=== PATIENT | female | born 1995 | race Hispanic/Latino ===

== ENCOUNTER 2025-08-12 15:36 | Emergency (ER) | payer BC, SELFPAY ==
[2025-08-12] VITALS (8 sets, daily range): BP systolic 101–115; BP diastolic 69–80; PULSE 78–89; RESP 12–24; TEMP 36.8; O2SAT 93–100; BMI 21.2
--- NOTE | 2025-08-12 16:18 | DI.RAD.S_ITS ---
PROCEDURE: XR CHEST 1V INDICATIONS: Chest Pain TECHNIQUE: One view of the chest was acquired. COMPARISON: None. FINDINGS: Surgical changes and devices: None. Lungs and pleura: Lungs are clear. No pleural effusions or pneumothorax. Mediastinum: Mediastinal contours appear normal. Heart size is normal. Bones and chest wall: No suspicious bony lesions. Overlying soft tissues appear unremarkable. IMPRESSION: No acute cardiopulmonary abnormality is seen. Dictated by: Bj Sierra M.D. on 08/12/2025 at 16:07 Approved by: Bj Sierra M.D. on 08/12/2025 at 16:07
[2025-08-12 16:34] LABS: Add Manual Diff / Slide Review NO; Hematocrit 35.4 % (36-46); Hemoglobin 12.1 g/dL (12.0-16.0); Lymphocytes Absolute Auto 1200 /uL (1100-4500); Mean Corpuscular HGB Conc 34.1 % (30-36); Mean Corpuscular Hemoglobin 32.5 PG (26-34); Mean Corpuscular Volume 95.3 fL (80-100); Platelet Count 307 X10^3/uL (150-400)
[2025-08-12] MEDS: LACTATED RINGERS 1,000 ML 1000 ML IV (16:38)
[2025-08-12 16:41] LABS: INR 1.0 (0.9-1.3); Prothrombin Time 11.7 SECONDS (9.4-12.5)
[2025-08-12 16:44] LABS: PTT Partial Thromboplastin Tim 27 SECONDS (25.1-36.5)
[2025-08-12 16:45] LABS: Alanine Aminotransferase 47 IU/L (<35); Albumin 4.4 g/dL (3.5-5.0); Albumin Globulin Ratio 1.5 (1.0-2.8); Alkaline Phosphatase 66 U/L (38-126); Blood Urea Nitrogen 10 mg/dL (7-17); Calcium 8.9 mg/dL (8.4-10.2); Carbon Dioxide 24 mmol/L (22-32); Chloride 101 mmol/L (98-107); Creatine Kinase 115 U/L (30-135); Estimated Glomerular Filt Rate > 60 mL/min (>60); Globulin 3.0 g/dL (1.7-4.1); Glucose 79 mg/dL (70-99); HEMOLYSIS < 15 (0-50); Lipase 181 U/L (23-300); Magnesium 2.0 mg/dL (1.6-2.3); Potassium 4.1 mmol/L (3.4-5.1); Sodium 132 mmol/L (137-145); Total Protein 7.4 g/dL (6.3-8.2)
[2025-08-12 16:56] LABS: NT-proBNP (BNP-Adult 18+) < 20 pg/mL (<125); Troponin I < 0.012 ng/mL (0.01-0.034)
--- NOTE | 2025-08-12 17:50 | EKG_ITS ---
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
--- NOTE | 2025-08-12 18:01 | ED.SEIZURE ---
HPI - Seizure General Chief Complaint: Seizure Stated Complaint: seizure, low blood sugar Time Seen by Provider: 08/12/25 16:18 Source: patient Mode of arrival: Ambulatory Limitations: no limitations History of Present Illness HPI Narrative: 30-year-old female with history of known seizure disorder diagnosed 3-4 years ago, for the last 2 years has been taking Keppra at 1000 mg twice daily dosing, decided to stop her medication 3-4 days ago, at work at local [employer] noted by coworkers to have shaking seizure activity that lasted 4-5 minutes, she was assisted to the ground, EMS was called, low sugar, apparently was treated orally, she had improvement in her mental status and refused treatment further and refused transport. 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 No subsequent seizure activity. No recent fevers or chills, nausea or vomiting, history of diabetes, use of glucose lowering medications. She would not sustain any injuries with her seizure activity, nor did she fall. She denies headache. Denies focal weakness to face arm or leg. Denies focal numbness face arm or leg. She would like refill of her medications, she will be working in the area of the next couple of months. Related Data Previous Rx's ?Medication ?Instructions ?Recorded levetiracetam 1,000 mg tablet 1,000 mg PO BID #120 tabs 08/12/25 (Keppra) Allergies Allergy/AdvReac Type Severity Reaction Status Date / Time No Known Drug Allergies Allergy Verified 08/12/25 15:57 Patient History Social History Smoking Status: Never smoker Smoking Status: Never smoker Exam Narrative Exam Narrative: GENERAL: Well-developed patient, in mild distress. HEAD: Atraumatic. Normocephalic. EYES: Pupils equal round and reactive. Extraocular motions intact. No scleral icterus. No injection or drainage. ENT: Nose without bleeding, purulent drainage. Throat without erythema, tonsillar hypertrophy or exudate. Airway patent. NECK: Trachea midline. Non tender CARDIOVASCULAR: Regular rate and rhythm without murmurs, gallops, or rubs. RESPIRATORY: Clear to auscultation. Breath sounds equal bilaterally. No wheezes, rales, or rhonchi. GASTROINTESTINAL: Abdomen soft, non-tender, nondistended. EXTREMITIES: No edema or joint tenderness. BACK: Nontender without deformity or crepitance. No flank tenderness. NEURO: AOx3. Motor functions grossly nonfocal. SKIN: No rash or erythema of visible areas Initial Vital Signs Initial Vital Signs: Vital Signs Temperature 98.2 F 08/12/25 15:54 Pulse Rate 89 08/12/25 15:54 Respiratory Rate 18 08/12/25 15:54 Blood Pressure 114/71 08/12/25 15:54 Pulse Oximetry 100 08/12/25 15:54 Oxygen Delivery Method Room Air 08/12/25 15:54 Course Orders Ordered: ED Orders 08/12/25 17:55 Lactate (Lactic Acid) Stat Discontinued Medications Lactated Ringer's (Lactated Ringers) 1,000 mls @ 1,000 mls/hr IV BOLUS ONE Stop: 08/12/25 17:18 Last Infusion: 08/12/25 17:59 Dose: Infused Documented By: Admin: 08/12/25 16:38 Dose: 1,000 mls/hr Documented By: KEVIN Levetiracetam 1,000 mg/ Sodium (Chloride) 110 mls @ 440 mls/hr IV NOW ONE Stop: 08/12/25 16:20 Last Infusion: 08/12/25 17:19 Dose: Infused Documented By: Admin: 08/12/25 16:59 Dose: 440 mls/hr Documented By: KEVIN Vital Signs Vital signs: Vital Signs - 8 hr 08/12/25 18:30 08/12/25 18:30 Pulse Rate 84 Respiratory Rate 22 Blood Pressure 112/79 Pulse Oximetry 100 MDM - Seizure Lab Data Attestation: I reviewed the patient's lab results. Lab results narrative: White blood cell count 5300, hemoglobin 12.1, platelets adequate. Glucose 79. Renal function, serum CO2, potassium normal. Sodium 132 slight low. Liver function so slight transaminitis, otherwise normal. Lipase 181 normal. Urinalysis negative. Urine test negative. 08/12/25 16:20 08/12/25 16:20 Labs: Lab Results 08/12/25 08/12/25 Range/Units 16:20 17:55 WBC 5.3 (4.5-11.0) X10^3/uL RBC 3.71 L (4.0-5.2) X10^6/uL Hgb 12.1 (12.0-16.0) g/dL Hct 35.4 L (36-46) % MCV 95.3 (80-100) fL MCH 32.5 (26-34) PG MCHC 34.1 (30-36) % RDW 12.9 (11.6-14.8) % Plt Count 307 (150-400) X10^3/uL Neut % (Auto) 65.6 (50-75) % Lymph % (Auto) 21.9 L (25-40) % Roane % (Auto) 9.4 (3-14) % Eos % (Auto) 1.9 L (2-4) % Baso % (Auto) 1.2 (0-2) % Neut # (Auto) 3500 (0909-2780) /uL Lymph # (Auto) 1200 (1609-2045) /uL Roane # (Auto) 500 (0-900) /uL Eos # (Auto) 100 (0-450) /uL Baso # (Auto) 100 (0-100) /uL PT 11.7 (9.4-12.5) SECONDS INR 1.0 (0.9-1.3) APTT 27 (25.1-36.5) SECONDS Sodium 132 L (137-145) mmol/L Potassium 4.1 (3.4-5.1) mmol/L Chloride 101 (98-107) mmol/L Carbon Dioxide 24 (22-32) mmol/L BUN 10 (7-17) mg/dL Creatinine 0.56 (0.52-1.04) mg/dL Estimated GFR > 60 (>60) mL/min BUN/Creatinine Ratio 17.9 (6-22) Glucose 79 (70-99) mg/dL Lactate 1.3 (0.7-2.1) mmol/L Calcium 8.9 (8.4-10.2) mg/dL Magnesium 2.0 (1.6-2.3) mg/dL Total Bilirubin 0.5 (0.2-1.3) mg/dL AST 42 H (14-36) IU/L ALT 47 H (<35) IU/L Alkaline Phosphatase 66 (38-126) U/L Total Creatine Kinase 115 (30-135) U/L Troponin I < 0.012 (0.01-0.034) ng/mL NT-Pro-B Natriuret Pep < 20 (<125) pg/mL Total Protein 7.4 (6.3-8.2) g/dL Albumin 4.4 (3.5-5.0) g/dL Globulin 3.0 (1.7-4.1) g/dL Albumin/Globulin Ratio 1.5 (1.0-2.8) Lipase 181 (23-300) U/L Point of Care Testing Test Results Negative Urine Dip Bedside Urine Glucose Negative Bedside Urine Bilirubin - Negative Bedside Urine Ketone - Negative Urine Specific [place] 1.015 Bedside Urine Occult Blood - Negative Bedside Urine pH 6.0 Bedside Urine Protein - Negative Bedside Urine Urobilinogen - Negative Bedside Urine Nitrite - Negative Bedside Urine Leukocytes - Negative Esterase Imaging Data Chest x-ray: Radiologist's Impression: [address] [address] XRay Report Signed Patient: Maria Antonia Sheffield I MR#: [id number] : 1995 Acct:[id number] Age/Sex: 30 / F Date of Service: 08/12/25 Loc: ED Accession Number: [id number] Procedure: XR chest 1V Ordering Provider: Boogie Alejandra D.O. PROCEDURE: XR CHEST 1V INDICATIONS: Chest Pain TECHNIQUE: One view of the chest was acquired. COMPARISON: None. FINDINGS: Surgical changes and devices: None. Lungs and pleura: Lungs are clear. No pleural effusions or pneumothorax. Mediastinum: Mediastinal contours appear normal. Heart size is normal. Bones and chest wall: No suspicious bony lesions. Overlying soft tissues appear unremarkable. IMPRESSION: No acute cardiopulmonary abnormality is seen. Dictated by: Bj Sierra M.D. on 08/12/2025 at 16:07 Approved by: Bj Sierra M.D. on 08/12/2025 at 16:07 ECG Data Attestation: I personally reviewed and interpreted this ECG as follows: Interpretation: 1750, normal sinus rhythm with rate of 76, no obvious ST segment elevation or depression changes. MD 120, QRS 72, QTC 432. [facility] Narrative Medical decision making narrative: 30-year-old female with history of seizure disorder, had seizure today, noncompliant with Keppra medication, stopped taking Keppra few days ago witnessed seizure activity at work, EMS reportedly documented low blood sugar, oral treatment given, patient refused transport. Afebrile, sirs screen negative. No obvious craniofacial injuries., IV Keppra load ordered after triage, glucose 79 noted. EKG shows normal sinus rhythm without obvious ischemic changes, no ectopy. Chest x-ray no acute changes. See radiology report. Lab data: White blood cell count 5300, hemoglobin 12.1, platelets adequate. Glucose 79. Renal function, serum CO2, potassium normal. Sodium 132 slight low. Liver function so slight transaminitis, otherwise normal. Lipase 181 normal. Urinalysis negative. Urine test negative. No seizure activity while here. IV Keppra load completed. Patient requests refill of Keppra medications, 1000 mg twice daily, sent to her pharmacy. Advised no driving until seizure-free for 6 months per state law. Also advised to not have use of machinery until seizure-free for 6 months. Encouraged to take her Keppra medication as prescribed. 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 Return precautions discussed. Discharge Plan Departure Patient Disposition: Home Clinical Impression: Seizure, Hypoglycemia Instructions: DI for Seizure Disorder -- Adult Activity Restrictions/Additional Instructions: Known seizure disorder, having voluntarily stopped antiseizure Keppra medication 4 days ago, noted to have generalized seizure activity at work, no obvious injuries. Low sugar reported, treated orally, improved sugar and mental status, refused EMS transport. On arrival here given IV Keppra loading dose of medication. Request for medication refills, sent to your pharmacy. Glucose here 76, given oral some straight to help keep your sugar elevated. Check your sugar with your regular doctor in the next few days. Per state law you should be seizure free for 6 months before operating a vehicle, and prudent also not to be operating machinery until seizure-free. 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 The though you should not be operating a motor vehicle yourself for the next 6 months until seizure-free for 6 months. Prescriptions: New levetiracetam [Keppra] 1,000 mg tablet 1,000 mg PO BID Qty: 120 0RF Stand Alone Forms: Patient Portal/API
[2025-08-12 18:17] LABS: Lactate (Lactic Acid) 1.3 mmol/L (0.7-2.1)
== END 2025-08-12 18:47 | disposition home or self-care (01) ==
PROVIDERS: Family Medicine; Emergency Provider Emergency Medicine
DX: G40.909 Epilepsy, unspecified, not intractable, without status epilepticus (principal); E16.2 Hypoglycemia, unspecified; R07.9 Chest pain, unspecified
CPT/HCPCS: 36415; 71045; 80053; 81003; 81025; 82550; 83605; 83690; 83735; 83880; 84484; 85025; 85610; 85730; 93005; 96361; 96365; 99284; J1953